=== PATIENT | female | born 1970 | race Caucasian/White ===

== ENCOUNTER 2022-02-24 16:34 | Emergency (ER) | payer OTHER ==
[2022-02-24 18:35] LABS: HEMOGLOBIN 13.8 gm/dl (12.3-15.3); RED BLOOD COUNT 4.24 M/UL (4.00-5.10); WHITE BLOOD COUNT 3.2 K/UL (4.5-11.0)
[2022-02-24 19:02] LABS: BUN/CREATININE RATIO 17 (0-10)
[2022-02-24] MEDS ORDERED: ZOFRAN ODT 4 MG4 MG PO (20:38)
== END 2022-02-24 20:53 | disposition home or self-care (01) ==
LOC: ER1 16:34
PROVIDERS: Nurse Practitioner
DX: U07.1 COVID-19 (principal); F17.210 Nicotine dependence, cigarettes, uncomplicated; J44.9 Chronic obstructive pulmonary disease, unspecified; Z88.5 Allergy status to narcotic agent
CPT/HCPCS: 71045; 80053; 85025; 94664; 96372; 99284; J2930

== ENCOUNTER 2022-02-26 13:44 | Emergency (ER) | payer OTHER ==
[~2022-02-26 13:44] MED LIST: ZOFRAN ODT 4 MG4 MG PO
[2022-02-26 16:21] LABS: HEMOGLOBIN 17.1 gm/dl (12.3-15.3); RED BLOOD COUNT 5.18 M/UL (4.00-5.10); WHITE BLOOD COUNT 5.3 K/UL (4.5-11.0)
[2022-02-26 16:47] LABS: BUN/CREATININE RATIO 33 (0-10)
[2022-02-26] MEDS ORDERED: PROVENTIL HFA6.7 GM INH (20:09)
[2022-02-26] MEDS ORDERED: PREDNISONE20 MG PO (20:09)
[2022-02-26] MEDS ORDERED: AEROCHAMBER1 EA XX (20:09)
== END 2022-02-26 20:19 | disposition home or self-care (01) ==
LOC: ER1 13:44
PROVIDERS: Emergency Medicine
DX: U07.1 COVID-19 (principal); J43.9 Emphysema, unspecified; F17.200 Nicotine dependence, unspecified, uncomplicated; Z90.49 Acquired absence of other specified parts of digestive tract
CPT/HCPCS: 71045; 80053; 82550; 82553; 83880; 84484; 85025; 85379; 93005; 96374; 99285; J2930; Q9967